=== PATIENT | male | born 1950 | race Caucasian/White ===

== ENCOUNTER 2021-04-21 03:16 | Observation (INO) | payer MEDICARE ==
[2021-04-21 04:04] LABS: HCT 34.2 % (39.0-53.0); HGB 10.9 gm/dL (13.0-17.5); Hypochromasia Moderate; MCHC 31.7 g/dL (31.0-37.0); MCV 85.1 fL (80.0-100.0); Mean Platelet Volume 8.7; Platelet Count 183 k/uL (150-450); RBC 4.02 m/uL (4.30-5.90); RDW 15.9 % (11.5-15.5); WBC 8.8 k/uL (3.8-10.6)
--- NOTE | 2021-04-21 04:04 | ED ---
SOB HPI - General Chief Complaint: Shortness of Breath Stated Complaint: EMILY Time Seen by Provider: 04/21/21 03:19 Source: patient, RN notes reviewed, old records reviewed Mode of arrival: ambulatory Limitations: no limitations - History of Present Illness Initial Comments: This is a 70-year-old male DF for evaluation patient Dese for multiple complaint s of mainly shortness of breath shortness of breath with difficulty catching his breath. Patient just by EMS for evaluation. Patient states breathing treatment by EMS did improve. Denies recent sick contacts or travel history no fevers. Emesis significant lower extremity swelling and edema MD Complaint: shortness of breath, pain with inspiration -: hour(s) (2) Severity: moderate Severity scale (1-10): 4 Quality: throbbing Consistency: constant Improves With: nothing Worsens With: nothing Known History Of: congestive heart failure Context: recent URI Associated Symptoms: chest pain, cough, syncope Treatments Prior to Arrival: none - Related Data Home Medications Medication Instructions Recorded Confirmed oxyCODONE HCL/ACETAMINOPHEN 1 tab PO BID 04/21/21 04/21/21 [Percocet 10-325 mg] Previous Rx's Medication Instructions Recorded Apixaban [Eliquis] 5 mg PO BID #60 tab 04/21/21 Allergies Allergy/AdvReac Type Severity Reaction Status Date / Time No Known Allergies Allergy Verified 04/21/21 06:38 Review of Systems ROS Statement: Those systems with pertinent positive or pertinent negative responses have been documented in the HPI. ROS Other: All systems not noted in ROS Statement are negative. Past Medical History Additional Past Medical History / Comment(s): shoulder injury History of Any Multi-Drug Resistant Organisms: None Reported Past Psychological History: No Psychological Hx Reported Smoking Status: Former smoker Past Alcohol Use History: None Reported Past Drug Use History: None Reported - Past Family History Father History Unknown: Yes General Exam Limitations: no limitations General appearance: alert, in no apparent distress, anxious, in distress Head exam: Present: atraumatic, normocephalic, normal inspection Eye exam: Present: normal appearance, PERRL, EOMI. Absent: scleral icterus, conjunctival injection, periorbital swelling ENT exam: Present: normal exam, mucous membranes moist Neck exam: Present: normal inspection. Absent: tenderness, meningismus, lymphadenopathy Respiratory exam: Present: respiratory distress, wheezes, accessory muscle use, decreased breath sounds, prolonged expiratory. Absent: rales, rhonchi, stridor Cardiovascular Exam: Present: regular rate, normal rhythm, normal heart sounds. Absent: systolic murmur, diastolic murmur, rubs, gallop, clicks GI/Abdominal exam: Present: soft, normal bowel sounds. Absent: distended, tenderness, guarding, rebound, rigid Extremities exam: Present: normal inspection, full ROM, normal capillary refill. Absent: tenderness, pedal edema, joint swelling, calf tenderness Back exam: Present: normal inspection Neurological exam: Present: alert, oriented X3, CN II-XII intact Psychiatric exam: Present: normal affect, normal mood Skin exam: Present: warm, dry, intact, normal color. Absent: rash Course Vital Signs 04/21/21 04/21/21 04/21/21 03:20 03:50 06:05 Temperature 98 F Pulse Rate 80 73 73 Respiratory 24 16 16 Rate Blood Pressure 185/83 177/88 169/89 O2 Sat by Pulse 96 96 95 Oximetry 04/21/21 04/21/21 04/21/21 07:47 07:55 08:48 Temperature 97.7 F Pulse Rate 74 76 75 Respiratory 20 Rate Blood Pressure 132/83 O2 Sat by Pulse 95 Oximetry 04/21/21 04/21/21 10:08 12:08 Temperature Pulse Rate 81 64 Respiratory 18 18 Rate Blood Pressure 156/89 144/82 O2 Sat by Pulse 95 93 L Oximetry - Reevaluation(s) Reevaluation #1: Medical record is reviewed Patient symptoms are improved here in the ER Patient is in no acute distress Patient informed results and questions answered Medical Decision Making - Medical Decision Making 70 male with new onset atrial fibrillation likely underlying COPD with wheezing, CHF. Patient be admitted for diuresis monitoring of A. fib and breathing treatments - Lab Data Result diagrams: 04/21/21 03:53 04/21/21 03:53 Lab Results 04/21/21 04/21/21 04/21/21 Range/Units 03:53 03:53 03:53 WBC 8.8 (3.8-10.6) k/uL RBC 4.02 L (4.30-5.90) m/uL Hgb 10.9 L (13.0-17.5) gm/dL Hct 34.2 L (39.0-53.0) % MCV 85.1 (80.0-100.0) fL MCH 27.0 (25.0-35.0) pg MCHC 31.7 (31.0-37.0) g/dL RDW 15.9 H (11.5-15.5) % Plt Count 183 (150-450) k/uL MPV 8.7 Neutrophils % (Manual) 86 % Band Neuts % (Manual) 1 % Lymphocytes % (Manual) 7 % Monocytes % (Manual) 3 % Eosinophils % (Manual) 3 % Neutrophils # (Manual) 7.60 (1.3-7.7) k/uL Lymphocytes # (Manual) 0.62 L (1.0-4.8) k/uL Monocytes # (Manual) 0.26 (0-1.0) k/uL Eosinophils # (Manual) 0.26 (0-0.7) k/uL Nucleated RBCs 0 (0-0) /100 WBC Manual Slide Review Performed Hypochromasia Moderate PT 10.7 (9.0-12.0) sec INR 1.0 (<1.2) APTT 23.1 (22.0-30.0) sec D-Dimer 0.79 H (<0.60) mg/L FEU Sodium 137 (137-145) mmol/L Potassium 4.4 (3.5-5.1) mmol/L Chloride 97 L (98-107) mmol/L Carbon Dioxide 33 H (22-30) mmol/L Anion Gap 7 mmol/L BUN 25 H (9-20) mg/dL Creatinine 1.00 (0.66-1.25) mg/dL Est GFR (CKD-EPI)AfAm 88 (>60 ml/min/1.73 sqM) Est GFR (CKD-EPI)NonAf 76 (>60 ml/min/1.73 sqM) Glucose 138 H (74-99) mg/dL Plasma Lactic Acid Fred (0.7-2.0) mmol/L Calcium 8.5 (8.4-10.2) mg/dL Magnesium 1.9 (1.6-2.3) mg/dL Total Bilirubin 0.3 (0.2-1.3) mg/dL AST 24 (17-59) U/L ALT 11 (4-49) U/L Alkaline Phosphatase 90 (38-126) U/L Troponin I (0.000-0.034) ng/mL NT-Pro-B Natriuret Pep pg/mL Total Protein 6.2 L (6.3-8.2) g/dL Albumin 3.4 L (3.5-5.0) g/dL 04/21/21 04/21/21 04/21/21 Range/Units 03:53 03:53 03:53 WBC (3.8-10.6) k/uL RBC (4.30-5.90) m/uL Hgb (13.0-17.5) gm/dL Hct (39.0-53.0) % MCV (80.0-100.0) fL MCH (25.0-35.0) pg MCHC (31.0-37.0) g/dL RDW (11.5-15.5) % Plt Count (150-450) k/uL MPV Neutrophils % (Manual) % Band Neuts % (Manual) % Lymphocytes % (Manual) % Monocytes % (Manual) % Eosinophils % (Manual) % Neutrophils # (Manual) (1.3-7.7) k/uL Lymphocytes # (Manual) (1.0-4.8) k/uL Monocytes # (Manual) (0-1.0) k/uL Eosinophils # (Manual) (0-0.7) k/uL Nucleated RBCs (0-0) /100 WBC Manual Slide Review Hypochromasia PT (9.0-12.0) sec INR (<1.2) APTT (22.0-30.0) sec D-Dimer (<0.60) mg/L FEU Sodium (137-145) mmol/L Potassium (3.5-5.1) mmol/L Chloride (98-107) mmol/L Carbon Dioxide (22-30) mmol/L Anion Gap mmol/L BUN (9-20) mg/dL Creatinine (0.66-1.25) mg/dL Est GFR (CKD-EPI)AfAm (>60 ml/min/1.73 sqM) Est GFR (CKD-EPI)NonAf (>60 ml/min/1.73 sqM) Glucose (74-99) mg/dL Plasma Lactic Acid Fred 0.8 (0.7-2.0) mmol/L Calcium (8.4-10.2) mg/dL Magnesium (1.6-2.3) mg/dL Total Bilirubin (0.2-1.3) mg/dL AST (17-59) U/L ALT (4-49) U/L Alkaline Phosphatase (38-126) U/L Troponin I 0.016 (0.000-0.034) ng/mL NT-Pro-B Natriuret Pep 3300 pg/mL Total Protein (6.3-8.2) g/dL Albumin (3.5-5.0) g/dL - EKG Data -: EKG Interpreted by Me (EKG shows A. fib 79 QRS 78 QTc 435) - Radiology Data Radiology results: report reviewed (Chest x-ray does show pulmonary edema CHF), image reviewed Disposition Clinical Impression: Acute pulmonary edema, Congestive heart failure, New onset atrial fibrillation, Acute exacerbation of chronic obstructive pulmonary disease Disposition: ADMITTED IP TO THIS HOSP Condition: Fair Is patient prescribed a controlled substance at d/c from ED?: No
[2021-04-21 04:22] LABS: Partial Thromboplastin Time 23.1 sec (22.0-30.0); Prothrombin Time 10.7 sec (9.0-12.0)
--- NOTE | 2021-04-21 04:24 | XR ---
EXAMINATION TYPE: XR chest 2V DATE OF EXAM: 04/21/2021 COMPARISON: NONE HISTORY: Short of breath TECHNIQUE: FINDINGS: Heart and mediastinum are normal. Lungs are clear of infiltrate. There is no heart failure. There are a few interstitial septal lines at the lung bases. There is no pleural effusion. IMPRESSION: There are a few Akin B lines that may indicate developing pulmonary interstitial edema.
[2021-04-21 04:37] LABS: Band Neutrophils % 1 %; Eosinophils # (M) 0.26 k/uL (0-0.7); Lymphocytes # (M) 0.62 k/uL (1.0-4.8); Monocytes # (M) 0.26 k/uL (0-1.0); Neutrophils % (M) 86 %; Nucleated Red Blood Cells 0 /100 WBC (0-0); Total Cells Counted 100
[2021-04-21 04:38] LABS: Albumin 3.4 g/dL (3.5-5.0); Calcium 8.5 mg/dL (8.4-10.2); Magnesium 1.9 mg/dL (1.6-2.3); Potassium 4.4 mmol/L (3.5-5.1); Total Bilirubin 0.3 mg/dL (0.2-1.3); Total Protein 6.2 g/dL (6.3-8.2)
[2021-04-21] MEDS ORDERED: IPRATROPIUM-ALBUTEROL 3 ML NEB INHALATION STA (06:35)
[2021-04-21] MEDS ORDERED: IPRATROPIUM-ALBUTEROL 3 ML NEB INHALATION PRN (06:35)
[2021-04-21] MEDS ORDERED: FUROSEMIDE 10 MG/ML 4 ML VIAL IV SCH (07:00)
[2021-04-21] MEDS ORDERED: ACETAMINOPHEN TAB 325 MG TAB PO PRN (08:17)
[2021-04-21] MEDS ORDERED: ONDANSETRON 4 MG/2 ML VIAL IVP PRN (08:17)
--- NOTE | 2021-04-21 08:25 | P.HPIM ---
History of Present Illness H&P Date: 04/21/21 Chief Complaint: Shortness of breath This is a 70-year-old male with no significant past medical history who presented to the emergency room with shortness of breath. Patient said that his symptoms started originally couple of month ago and is being getting progressively worse. He reports shortness of breath with dyspnea and also some chest discomfort when pushing heavy things around. Patient said that he did not make anything of it but for the last couple of days he noted worsening lower extremity swelling and his shortness of breath is being getting worse. He said last night he had trouble catching his breath and decided to come to the emergency room for further evaluation. In the ER, patient was hemodynamically stable. He appeared in irregular heart rhythm on the monitor. O2 sat around 95% on room air. Chest x-ray showed mild pulmonary edema. BNP was elevated as well and elevated d-dimer. Patient himself denies any cardiac history. No known COPD. Patient does not smoke cigarettes. He is usually fairly active. He never had blood clots in the past. Review of Systems Review of system: 14 points review of systems were obtained and were negative except to what were mentioned in the HPI. Past Medical History Additional Past Medical History / Comment(s): shoulder injury History of Any Multi-Drug Resistant Organisms: None Reported Past Psychological History: No Psychological Hx Reported Smoking Status: Former smoker Past Alcohol Use History: None Reported Past Drug Use History: None Reported Medications and Allergies Home Medications Medication Instructions Recorded Confirmed Type oxyCODONE HCL/ACETAMINOPHEN 1 tab PO BID 04/21/21 04/21/21 History [Percocet 10-325 mg] Allergies Allergy/AdvReac Type Severity Reaction Status Date / Time No Known Allergies Allergy Verified 04/21/21 06:38 Physical Exam Vitals: Vital Signs Temp Pulse Resp BP Pulse Ox 04/21/21 07:55 76 04/21/21 07:47 74 04/21/21 06:05 73 16 169/89 95 04/21/21 03:50 73 16 177/88 96 04/21/21 03:20 98 F 80 24 185/83 96 Intake and Output 04/20/21 04/21/21 04/21/21 22:59 06:59 14:59 Other: Weight 91.626 kg General: The patient is awake and alert, in no distress Eye: there is normal conjunctiva bilaterally. Neck: The neck is supple, there is no JVD. Cardiovascular: Irregularly irregular. Normal S1-S2, no S3-S4, no murmurs. Respiratory: Lungs scattered bibasilar crackles Gastrointestinal: Abdomen is soft, nontender Musculoskeletal: There is +1-2 pedal edema. Neurological:. Speech is normal. Skin: Skin is warm and dry Results CBC & Chem 7: 04/21/21 03:53 04/21/21 03:53 Labs: Abnormal Lab Results - Last 24 Hours (Table) 04/21/21 04/21/21 04/21/21 Range/Units 03:53 03:53 03:53 RBC 4.02 L (4.30-5.90) m/uL Hgb 10.9 L (13.0-17.5) gm/dL Hct 34.2 L (39.0-53.0) % RDW 15.9 H (11.5-15.5) % Lymphocytes # (Manual) 0.62 L (1.0-4.8) k/uL D-Dimer 0.79 H (<0.60) mg/L FEU Chloride 97 L (98-107) mmol/L Carbon Dioxide 33 H (22-30) mmol/L BUN 25 H (9-20) mg/dL Glucose 138 H (74-99) mg/dL Total Protein 6.2 L (6.3-8.2) g/dL Albumin 3.4 L (3.5-5.0) g/dL Assessment and Plan Assessment: This is a 70-year-old male with no significant past medical history who presented to the emergency room with progressive shortness of breath. Patient evaluated in the ER and will be admitted to the hospital for further evaluation of his medical problems noted below. 1. Suspected congestive heart failure exacerbation, with elevated BNP and evidence of fluid overload clinically on chest x-ray. Echocardiogram ordered for further evaluation. Continue IV Lasix 40 mg twice daily. 2. Elevated d-dimer, with progressive dyspnea. I would obtain CT angiogram of the chest to rule out PE 3. New onset atrial fibrillation, irregularly irregular rhythm noted on hall monitor and on exam. Rate controlled. Awaiting cardiology evaluation. I will check thyroid function test. 4. Anemia, exact etiology unclear. Needs further workup outpatient 5. DVT prophylaxis with subcu Lovenox 6. CODE STATUS: Patient would like to be full code
[2021-04-21] MEDS ORDERED: ENOXAPARIN 40 MG/0.4 ML SYRINGE SQ SCH (09:00)
[2021-04-21] MEDS ORDERED: HEPARIN SODIUM 1,000 UN/ML (10ML VL) IV PRN (09:07)
[2021-04-21] MEDS ORDERED: HEPARIN SODIUM 1,000 UN/ML (10ML VL) IV ONE (09:07)
--- NOTE | 2021-04-21 09:09 | CT ---
EXAMINATION TYPE: CT chest angio for PE DATE OF EXAM: 04/21/2021 COMPARISON: Radiograph same day HISTORY: 70-year-old male SOB, PE TECHNIQUE: Contiguous axial scanning of the chest performed with IV Contrast, patient injected with 1 00 mL of Isovue 370. Coronal and sagittal MIP reconstructions performed. CT DLP: 461.9 mGycm Automated exposure control for dose reduction was used. FINDINGS: Heart normal size without pericardial effusion. No flattening of the interventricular septum or reflu x of contrast into the hepatic veins. Scattered LAD and circumflex coronary artery calcifications are present. Ascending aorta mildly aneurysmal at 4.0 cm. Mild active cardiac or calcifications and bovine configu ration to the aortic arch. Upper descending thoracic aorta mildly aneurysmal at 3.6 cm. Mediastinal and hilar lymphadenopathy is present, measuring up to 1.0 cm right paratracheal, 1.4 cm A P window, 1.5 cm right hilum, 1.4 cm left hilum, and 2.3 cm subcarinal. Satisfactory opacification of the pulmonary arterial system with mildly enlarged caliber to the main right and left pulmonary arteries are 2.7 and 2.6 cm, respectively. No pulmonary embolus is seen. There are trace pleural effusions. Mild diffuse bronchial wall thickening. A few scattered areas of t ree-in-bud opacities, for example, periphery of the right midlung, axial image 67. Lower lung septal lines. Mild dependent groundglass. Some focal patchy opacity medial right base, axial image 123. Background minimal emphysematous change. A few benign calcified granulomas. Adjacent 7 mm noncalcified pulmonary nodule anterior right midlung , axial image 78. Visualized upper abdomen shows a central cystic dilatation of the right kidney measuring up to 4.3 cm . As could represent underlying hydronephrosis or a parapelvic cyst. Mild diffuse low-density thicken ing left adrenal gland without discrete nodularity. Bones: No osseous destructive process. IMPRESSION: 1. NO EVIDENCE FOR PULMONARY EMBOLUS. 2. HOWEVER, THERE ARE FINDINGS WHICH SUGGEST UNDERLYING PULMONARY ARTERIAL HYPERTENSION ALONG WITH TR ALKA EFFUSIONS AND BASILAR SEPTAL LINES. FINDINGS MAY REFLECT FLUID OVERLOAD STATE AND PULMONARY VASCU LAR CONGESTION. CORRELATE WITH BNP AND FLUID STATUS. 3. HOWEVER, THERE ARE ADDITIONAL FINDINGS INCLUDING A FEW PATCHES OF TREE-IN-BUD OPACITIES, MEDIASTIN AL AND HILAR LYMPHADENOPATHY (MEASURING UP TO 2.3 CM), AND FOCAL INFILTRATE MEDIAL RIGHT LOWER LOBE. A CONCURRENT INFECTIOUS ETIOLOGY/PNEUMONIA IS NOT EXCLUDED AT THIS TIME. FOLLOW-UP CT IN 6-8 WEEKS TO REASSESS THE LYMPHADENOPATHY. 4. A 7 MM RIGHT MIDLUNG PULMONARY NODULE SHOULD ALSO BE REASSESSED AT THE PATIENT'S FOLLOW-UP.
[2021-04-21] MEDS ORDERED: HEPARIN SOD,PORK IN 0.45% NACL 25,000 UNIT in 0.45% NACL 1 250ML.BAG IV SCH (09:15)
[2021-04-21] MEDS: METOPROLOL SUCCINATE (ER) 25 MG TAB.ER.24H PO SCH (09:59)
[2021-04-21] MEDS: oxyCODONE-APAP 10-325MG 1 EACH TAB PO SCH ×2 (10:00→21:51)
[2021-04-21] MEDS: LOSARTAN 25 MG TAB PO SCH (10:03)
[2021-04-21] MEDS: AZITHROMYCIN 500 MG TAB PO SCH (10:04)
[2021-04-21 10:09] VITALS: RESP 18
--- NOTE | 2021-04-21 12:09 | ECHOF ---
Referral Reason:Heart Failure MEASUREMENTS -------- HEIGHT: 180.3 cm WEIGHT: 91.6 kg BP: 169/89 IVSd: 1.3 cm (0.6 - 1.1) LVIDd: 4.2 cm (3.9 - 5.3) LVPWd: 1.2 cm (0.6 - 1.1) IVSs: 1.9 cm LVIDs: 2.2 cm LVPWs: 2.0 cm LAESV Index (A-L): 39.79 ml/m Ao Diam: 3.2 cm (2.0 - 3.7) AV Cusp: 1.4 cm (1.5 - 2.6) LA Diam: 2.6 cm (2.7 - 3.8) MV EXCURSION: 12.148 mm (> 18.000) MV EF SLOPE: 89 mm/s (70 - 150) EPSS: 2.4 cm MV E Reji: 1.26 m/s MV DecT: 242 ms MV A Reji: 0.59 m/s MV E/A Ratio: 2.13 AV maxP.87 mmHg AV meanP.92 mmHg AR PHT: 541 ms RAP: 15.00 mmHg RVSP: 44.78 mmHg FINDINGS -------- This was a technically good study. The left ventricular size is normal. There is mild concentric left ventricular hypertrophy. Overa ll left ventricular systolic function is normal with, an EF between 55 - 60 %. The diastolic fillin g pattern is normal for the age of the patient 13.47. The right ventricle is normal in size. LA is moderately dilated 34-39 ml/m2 The right atrial size is normal. Interatrial and interventricular septum intact. Aortic valve is trileaflet and is moderately thickened. There is mild aortic regurgitation. There is moderate aortic stenosis present. Peak/mean gradient across the Aortic Valve is 46.87mmHg / 25. 92mmHg. The mitral valve is normal. Mild mitral regurgitation is present. The tricuspid valve appears structurally normal. Mild tricuspid regurgitation present. There is m ild pulmonary hypertension. The right ventricular systolic pressure, as measured by Doppler, is 44. 78mmHg. There is no pulmonic regurgitation present. The aortic root size is normal. The inferior vena cava is mildly dilated. There is no pericardial effusion. CONCLUSIONS -------- 1. There is mild concentric left ventricular hypertrophy. 2. Overall left ventricular systolic function is normal with, an EF between 55 - 60 %. 3. The diastolic filling pattern is normal for the age of the patient 13.47 4. LA is moderately dilated 34-39 ml/m2 5. Aortic valve is trileaflet and is moderately thickened. 6. There is mild aortic regurgitation. 7. There is moderate aortic stenosis present. 8. Peak/mean gradient across the Aortic Valve is 46.87mmHg / 25.92mmHg. 9. Mild mitral regurgitation is present. 10. Mild tricuspid regurgitation present. 11. There is mild pulmonary hypertension. 12. The right ventricular systolic pressure, as measured by Doppler, is 44.78mmHg. 13. The inferior vena cava is mildly dilated. 14. There is no pericardial effusion. BOOKKEEPERS SUPERVISOR: Maryjane Zaragoza RDCS
[2021-04-21] MEDS: FUROSEMIDE 10 MG/ML 4 ML VIAL IV SCH (12:13)
--- NOTE | 2021-04-21 12:36 | CONS ---
CONSULTATION CARDIOLOGY CONSULTATION: CHIEF COMPLAINT: Shortness of breath. HISTORY OF PRESENT ILLNESS: Jakob is a 70-year-old gentleman who is admitted to hospital with sudden onset shortness of breath. He states that over the last several weeks he has been becoming more and more fatigued and tired with activity and was also becoming more short of breath. Last night he woke up from sleep because of difficulty in breathing. At the time of my evaluation in the emergency room, patient is comfortable at rest. Received IV Lasix with improvement in his symptoms. He does not have chest pain, leg edema, PND or orthopnea. There is no prior history of coronary artery disease or congestive heart failure. He has a fairly unremarkable history other than shoulder pain, for which she takes Percocet. His EKG shows atrial fibrillation with nonspecific ST-T wave changes, as do the rhythm strips. His troponin was mildly elevated. The patient underwent a CT scan of the chest that is negative for pulmonary embolism. LABS: Labs show that his BNP is elevated at 3300. Troponins are negative. Creatinine is normal at 1 and hemoglobin is low at 10.9. The patient's clinical presentation is consistent with acute onset congestive heart failure and persistent atrial fibrillation. I will obtain a 2D echo to document his LV function. Treat him with IV Lasix, IV heparin, beta blockers and ALKA inhibitors and optimize therapies as patient tolerates them. PAST MEDICAL HISTORY: Negative for hypertension, diabetes, dyslipidemia. MEDICATIONS: Include Percocet. ALLERGIES: No known drug allergies. FAMILY HISTORY: Negative for premature coronary artery disease. SOCIAL HISTORY: He denies smoking, ETOH abuse or drug abuse. REVIEW OF SYSTEMS: HEENT is unremarkable. CARDIAC: As described above. RESPIRATORY: As described above. GI: Negative. GENITOURINARY: Negative. SKIN: Negative. MUSCULOSKELETAL: Negative for arthritis. PSYCHOSOCIAL: Negative. ENDOCRINE/DERM: Negative. CONSTITUTIONAL: Negative. ONCOLOGICAL: Negative. LEAD INJECTION MOLD TECHNICIAN: Negative. Rest of the system review is not relevant. EXAM: Patient is afebrile. Heart rate is 74 beats per minute. Blood pressure is 132/83, respiratory rate is 18, O2 saturation is 95% on room air. NECK: There is no jugular venous distention. Carotid upstroke is normal. There is no bruit. CHEST: Exam reveals good air entry bilaterally. HEART: Exam reveals first and second heart sounds. No gallop. Regular rhythm. No murmur. ABDOMEN: Soft. EXTREMITIES: Exam of extremities did not reveal any edema. Peripheral pulses are felt. LABS: Labs show a hemoglobin of 10.9, platelet count is 183. Potassium is 4.4, creatinine is 1. Tropes are negative. BNP is elevated. ASSESSMENT: 1. Acute onset congestive heart failure. 2. Persistent atrial fibrillation with controlled ventricular rate, new onset. 3. Elevated D-dimer. Pulmonary embolism ruled out. PLAN: I will treat the patient with IV heparin and come to switch him to Eliquis or Xarelto depending upon what his insurance covers. Obtain a 2D echo, treat him with Lasix, beta hui, ALKA inhibitors. Depending upon his echo findings, adjust his therapies. Thank you for allowing me to participate in the care of this pleasant gentleman. [place] / XIOMYN: [id number] /
[2021-04-21] MEDS: APIXABAN 5 MG TAB PO SCH ×2 (12:37→21:50)
[2021-04-21 14:43] VITALS: BMI 28.1
[2021-04-22] MEDS: LOSARTAN 25 MG TAB PO SCH (08:04)
[2021-04-22] MEDS: AZITHROMYCIN 500 MG TAB PO SCH (08:04)
[2021-04-22] MEDS: oxyCODONE-APAP 10-325MG 1 EACH TAB PO SCH (08:04)
[2021-04-22] MEDS: APIXABAN 5 MG TAB PO SCH (08:04)
[2021-04-22] MEDS: METOPROLOL SUCCINATE (ER) 25 MG TAB.ER.24H PO SCH (08:04)
[2021-04-22 08:21] LABS: HCT 38.7 % (39.0-53.0); HGB 12.4 gm/dL (13.0-17.5); Hypochromasia Moderate; MCH 27.1 pg (25.0-35.0); MCV 84.6 fL (80.0-100.0); Mean Platelet Volume 8.4; Platelet Count 232 k/uL (150-450); RBC 4.58 m/uL (4.30-5.90); RDW 15.7 % (11.5-15.5); WBC 9.9 k/uL (3.8-10.6)
[2021-04-22 08:33] LABS: Prothrombin Time 10.5 sec (9.0-12.0)
[2021-04-22 09:04] LABS: Calcium 9.4 mg/dL (8.4-10.2); Potassium 4.4 mmol/L (3.5-5.1)
--- NOTE | 2021-04-22 10:22 | P.DS ---
Providers Date of admission: 04/21/21 06:35 Expected date of discharge: 04/22/21 Attending physician: Trevor Henriquez MD Consults: 04/21/21 06:31 Consult Physician Routine Consulting Provider: Mandeep Hammond Consult Reason/Comments: afibNew,CHF Do you want consulting provider notified?: Yes Primary care physician: [facility] Course: This is a 70-year-old male with no significant past medical history who presented to the emergency room with progressive shortness of breath. Patient evaluated in the ER and will be admitted to the hospital for further evaluation of his medical problems noted below. 1. New onset atrial fibrillation, rate controlled. Patient was seen and evaluated by cardiology. Started on anticoagulation with Eliquis. Echocardiogram showed preserved ejection fraction with no significant valvular abnormalities. Thyroid function test checked and normal 2. Elevated d-dimer, CT angiogram of the chest was negative for PE 3. Hilar lymphadenopathy with tree-in-bud opacities noted incidentally on computed tomography scan of the chest. Pro-calcitonin was normal. Patient was started on antibiotic with ceftriaxone and azithromycin and will finish course at home with Keflex and azithromycin. He was counseled extensively to follow-up with his PCP for repeat imaging in the next 6-8 weeks. 4. Anemia, exact etiology unclear. Needs further workup outpatient 5. 7 mm right mid lung pulmonary nodule: Follow-up imaging recommended Patient was seen, examined, and evaluated by me on the day of discharge. His overall condition improved significantly. His lungs are clear to auscultation bilaterally. He is eager to be discharged home. All of his prescription sent to the pharmacy. He will follow-up with cardiology and PCP in the office as directed. Patient Condition at Discharge: Fair Plan - Discharge Summary Discharge Rx Participant: Yes New Discharge Prescriptions: New Cephalexin [Keflex] 500 mg PO Q6HR 3 Days #12 cap Furosemide [Lasix] 40 mg PO DAILY #30 tablet Metoprolol Succinate (ER) [Toprol XL] 25 mg PO DAILY #30 tab.er.24h Apixaban [Eliquis] 5 mg PO BID #60 tab Losartan [Cozaar] 25 mg PO DAILY #30 tab Azithromycin [Zithromax] 250 mg PO DAILY 3 Days #3 tab Continue oxyCODONE HCL/ACETAMINOPHEN [Percocet 10-325 mg] 1 tab PO BID Discharge Medication List Apixaban [Eliquis] 5 mg PO BID #60 tab 04/21/21 [Rx] oxyCODONE HCL/ACETAMINOPHEN [Percocet 10-325 mg] 1 tab PO BID 04/21/21 [History] Azithromycin [Zithromax] 250 mg PO DAILY 3 Days #3 tab 04/22/21 [Rx] Cephalexin [Keflex] 500 mg PO Q6HR 3 Days #12 cap 04/22/21 [Rx] Furosemide [Lasix] 40 mg PO DAILY #30 tablet 04/22/21 [Rx] Losartan [Cozaar] 25 mg PO DAILY #30 tab 04/22/21 [Rx] Metoprolol Succinate (ER) [Toprol XL] 25 mg PO DAILY #30 tab.er.24h 04/22/21 [Rx] Follow up Appointment(s)/Referral(s): Jah Hammond DO [Primary Care Provider] - 1-2 days Michael Mckeon MD [STAFF PHYSICIAN] - 1 Week Activity/Diet/Wound Care/Special Instructions: Copay for Eliquis is $43.50 with free coupon applied in [facility] pharmacy. Discharge Disposition: HOME SELF-CARE
[2021-04-22 12:13] VITALS: BP 159/94; PULSE 72; TEMP 98.3
[2021-04-22] MEDS: FUROSEMIDE 10 MG/ML 4 ML VIAL IV SCH (12:13)
[2021-04-22 12:44] LABS: Lymphocytes # (M) 0.59 k/uL (1.0-4.8); Neutrophils # (M) 8.81 k/uL (1.3-7.7); Neutrophils % (M) 89 %; Nucleated Red Blood Cells 0 /100 WBC (0-0); Total Cells Counted 100
--- NOTE | 2021-04-22 12:46 | P.PN ---
Subjective Progress Note Date: 04/22/21 HISTORY OF PRESENT ILLNESS: Patient examined this morning at the bedside. Patient states his shortness of breath has resolved. He denies chest pain or pressure. Patient is currently in sinus mechanism. Echocardiogram completed revealed ejection fraction 55-60%, moderate aortic stenosis, mild mitral regurgitation, mild tricuspid regurgitation, and mild pulmonary hypertension. Patient has been cleared for discharge per internal medicine. PHYSICAL EXAM: VITAL SIGNS: Reviewed. GENERAL: Well-developed in no acute distress. NECK: Supple. No JVD or thyromegaly LUNGS: Respirations even and unlabored. Lungs essentially clear to auscultation bilaterally. HEART: Regular rate and rhythm. S1 and S2 heard. Systolic murmur noted EXTREMITIES: Normal range of motion. No clubbing or cyanosis. Peripheral pulses intact. No lower extremity edema ASSESSMENT: Acute diastolic heart failure, ejection fraction 55-60% New-onset paroxysmal atrial fibrillation, currently maintaining sinus mechanism Moderate aortic stenosis Hypertension PLAN: Patient has been cleared for discharge per internal medicine Agreeable to discharge home today on Lasix 40 mg daily, metoprolol succinate 25 mg daily, losartan 50 mg daily, Eliquis 5 mg twice a day, and potassium chloride 20meq daily Patient to follow-up outpatient with Dr. Mckeon Nurse practitioner note has been reviewed by physician. Signing provider agrees with the documented findings, assessment, and plan of care. Objective - Vital Signs Vital signs: Vital Signs Temp 98.3 F 04/22/21 12:00 Pulse 72 04/22/21 12:00 Resp 18 04/22/21 12:00 BP 159/94 04/22/21 12:00 Pulse Ox 93 L 04/22/21 12:00 Intake & Output 04/21/21 04/22/21 04/22/21 18:59 06:59 18:59 Intake Total 240 180 Output Total 1200 Balance -960 180 Weight 91.626 kg 85.1 kg Intake: Oral 240 180 Output: Urine 1200 Other: # Voids 1 # Bowel Movements 0 - Labs CBC & Chem 7: 04/22/21 07:18 04/22/21 07:18 Labs: Abnormal Lab Results - Last 24 Hours (Table) 04/22/21 04/22/21 Range/Units 07:18 07:18 Hgb 12.4 L (13.0-17.5) gm/dL Hct 38.7 L (39.0-53.0) % RDW 15.7 H (11.5-15.5) % Chloride 94 L (98-107) mmol/L Carbon Dioxide 39 H (22-30) mmol/L BUN 21 H (9-20) mg/dL Glucose 132 H (74-99) mg/dL Microbiology - Last 24 Hours (Table) 04/21/21 10:00 Blood Culture - Preliminary Blood No Growth after 24 hours
== END 2021-04-22 13:05 | disposition home or self-care (01) ==
LOC: EC 03:16 → SUPCPDRO 03:16 → 3SCARD 06:35 → INTOOBSV 06:35 → 3SCARD 12:48 → UNDODISIN 04-22 13:05
PROVIDERS: ADMIT Internal Medicine; ATTEND Internal Medicine
DX: I48.19 Other persistent atrial fibrillation (principal); I11.0 Hypertensive heart disease with heart failure; I50.31 Acute diastolic (congestive) heart failure; I35.0 Nonrheumatic aortic (valve) stenosis; I27.20 Pulmonary hypertension, unspecified; D64.9 Anemia, unspecified; R91.1 Solitary pulmonary nodule; R79.89 Other specified abnormal findings of blood chemistry; R59.0 Localized enlarged lymph nodes; Z79.01 Long term (current) use of anticoagulants; Z87.891 Personal history of nicotine dependence; Z87.828 Personal history of other (healed) physical injury and trauma
CPT/HCPCS: 96376; 96368; 96365; 96366; 96375; 99285; 36415; 94640 ×2; 93005; 93306; 85379; 83880; 80053; 80048; 84443; 83605; 83735 ×2; 84484; 85025 ×2; 85610 ×2; 85730; 87040; 84145; 71046; 71275; G0378 ×2; J1940; J0696 ×2; J1644 ×2; Q9967; 96374

== ENCOUNTER 2021-06-16 06:03 | Day surgery (SDC) | payer MEDICARE ==
[2021-06-10 11:30] VITALS: BMI 26.2
[~2021-06-16 06:03] MED LIST: SODIUM CHLORIDE 0.9% 1,000 ML IV SCH
[2021-06-16] MEDS ORDERED: SODIUM CHLORIDE 0.9% 500 ML 500 ML IV ONE (06:05)
[2021-06-16 06:43] VITALS: TEMP 98.1
[2021-06-16] MEDS ORDERED: PROPOFOL 10 MG/ML 20 ML VIAL IV ONE (07:26)
[2021-06-16] MEDS ORDERED: LIDOCAINE 1% INJ 10MG/ML (20 ML MDV) ONE (07:26)
[2021-06-16 07:49] LABS: Calcium 9.5 mg/dL (8.4-10.2); Potassium 4.5 mmol/L (3.5-5.1)
[2021-06-16 08:03] VITALS: RESP 16
--- NOTE | 2021-06-16 08:29 | ECHOT ---
TRANSESOPHAGEAL ECHOCARDIOGRAM REFERRING PHYSICIAN: Dr. Zacarias. INDICATION: Persistent atrial fibrillation. The patient has diastolic heart failure and aortic stenosis. PROCEDURE NOTE: After obtaining informed consent, transesophageal echocardiogram was performed in the left lateral position using an Omni plane probe. Local and IV sedation were obtained by the certified travel counselor. The patient tolerated the procedure well without any obvious immediate complications. 2D M-mode color Doppler and spectral analysis was performed. FINDINGS: 1. There is no intracardiac thrombus within the left atrial appendage, left atrium, right atrium, right ventricular or left ventricle. 2. Left ventricle has normal size and systolic function. 3. Mitral valve shows mild mitral regurgitation. 4. Tricuspid valve shows mild tricuspid regurgitation. 5. Aortic valve is a 3-leaflet valve appears heavily calcified with moderate to severe restriction in leaflet mobility with moderate eccentric jet of aortic regurgitation. There is aortic stenosis with a calculated valve area of 0.8 squared cm. 6. Interatrial septum: There is no evidence of [id number]-fh-[id number] shunt by color-flow Doppler or agitated saline contrast study or firt-wq-emwge shunt by color-flow Doppler. CONCLUSIONS: 1. No intracardiac thrombus. 2. Left ventricular systolic function is normal. 3. Moderate to severe aortic stenosis. 4. Moderate aortic regurgitation. PLAN: Patient will proceed with cardioversion. MMODL / IJN: [id number] /
--- NOTE | 2021-06-16 08:33 | PCN ---
PROCEDURE NOTE PROCEDURE PERFORMED: Cardioversion. INDICATION: Persistent atrial fibrillation. PROCEDURE NOTE: After obtaining informed consent, patient underwent electrical cardioversion with synchronized DC current. He converted to sinus rhythm following a 2nd shock at 150 joules, was adequately anticoagulated with Eliquis and intracardiac thrombus was ruled out by CHRIS. [place] / XIOMYN: [id number] /
[2021-06-16 17:08] VITALS: BP 156/74; PULSE 63
== END 2021-06-16 10:05 | disposition home or self-care (01) ==
LOC: CATHCVL 06:03
PROVIDERS: ATTEND Internal Medicine Cardiovascular Disease
DX: I48.19 Other persistent atrial fibrillation (principal); Z79.01 Long term (current) use of anticoagulants; Z79.899 Other long term (current) drug therapy; I11.0 Hypertensive heart disease with heart failure; I50.32 Chronic diastolic (congestive) heart failure; I35.0 Nonrheumatic aortic (valve) stenosis
CPT/HCPCS: 93312; 93005; 92960; 80048; J2001; J2704

== ENCOUNTER 2021-09-05 12:31 | Emergency (ER) | payer MEDICARE ==
[2021-09-05 13:16] VITALS: RESP 18
[2021-09-05] MEDS ORDERED: ALBUTEROL HFA INHALER INHALATION STA (13:51)
[2021-09-05] MEDS ORDERED: ACETAMINOPHEN TAB 500 MG TAB PO STA (13:54)
[2021-09-05] MEDS ORDERED: SODIUM CHLORIDE 0.9% 1,000 ML IV ONE (13:54)
[2021-09-05] MEDS ORDERED: IBUPROFEN 600 MG TAB PO STA (13:54)
--- NOTE | 2021-09-05 14:01 | ED ---
General Adult HPI - General Chief complaint: Shortness of Breath Stated complaint: EMILY/Chest Tightness Time Seen by Provider: 09/05/21 13:15 Source: patient, RN notes reviewed, old records reviewed Mode of arrival: ambulatory Limitations: no limitations - History of Present Illness Initial comments: This is a 70-year-old male presents to the emergency department and states she did not get his covert vaccine. Patient states 8 days ago he got up out of bed became lightheaded and fell and hit his left side of his chest on a dresser. Patient states ever since then he's been very tired and fatigued he states he's also a dry cough and just overall does not feel good. Patient states he's got generalized weakness but no focal weakness. Patient denies any chest pain or palpitations per patient denies shortness of breath. Patient states when he nohemi es a deep breath the left side of his chest does hurt ever since he hit the dresser. Patient denies smoking. Patient states he does have a history of A. fib. Patient denies any diarrhea or vomiting. Patient denies any leg swelling or calf tenderness. - Related Data Home Medications Medication Instructions Recorded Confirmed oxyCODONE HCL/ACETAMINOPHEN 1 tab PO BID 04/21/21 06/16/21 [Percocet 10-325 mg] Previous Rx's Medication Instructions Recorded Apixaban [Eliquis] 5 mg PO BID #60 tab 04/21/21 Furosemide [Lasix] 40 mg PO DAILY #30 tablet 04/22/21 Losartan [Cozaar] 50 mg PO DAILY #90 tab 04/22/21 Metoprolol Succinate (ER) [Toprol 25 mg PO DAILY #30 tab.er.24h 04/22/21 XL] Potassium Chloride ER [K-Dur 20] 20 meq PO DAILY #90 tab 04/22/21 Allergies Allergy/AdvReac Type Severity Reaction Status Date / Time No Known Allergies Allergy Verified 09/05/21 13:16 Review of Systems ROS Statement: Those systems with pertinent positive or pertinent negative responses have been documented in the HPI. ROS Other: All systems not noted in ROS Statement are negative. Past Medical History Past Medical History: Atrial Fibrillation, Heart Failure Additional Past Medical History / Comment(s): hx rt shoulder injury. hx kidney stone History of Any Multi-Drug Resistant Organisms: None Reported Past Surgical History: No Surgical Hx Reported, Cardiac Ablation Additional Past Surgical History / Comment(s): lithotripsy Past Anesthesia/Blood Transfusion Reactions: No Reported Reaction Past Psychological History: No Psychological Hx Reported Smoking Status: Former smoker Past Alcohol Use History: None Reported Past Drug Use History: None Reported - Past Family History Father History Unknown: Yes General Exam - General Exam Comments Initial Comments: GENERAL: Patient is well-developed and well-nourished. Patient is nontoxic and well- hydrated and is in mild distress. ENT: Neck is soft and supple. No significant lymphadenopathy is noted. Oropharynx is clear. Moist mucous membranes. Neck has full range of motion without eliciting any pain. EYES: The sclera were anicteric and conjunctiva were pink and moist. Extraocular movements were intact and pupils were equal round and reactive to light. Eyelids were unremarkable. PULMONARY: Unlabored respirations. Good breath sounds bilaterally. Patient has crackles in the bases more so on the left than the right. CARDIOVASCULAR: There is a regular rate and rhythm without any murmurs gallops or rubs. ABDOMEN: Soft and nontender with normal bowel sounds. SKIN: Skin is clear with no lesions or rashes and otherwise unremarkable. NEUROLOGIC: Patient is alert and oriented x3. Cranial nerves II through XII are grossly intact. Motor and sensory are also intact. Normal speech, volume and content. Symmetrical smile. MUSCULOSKELETAL: Normal extremities with adequate strength and full range of motion. LYMPHATICS: No significant lymphadenopathy is noted PSYCHIATRIC: Normal psychiatric evaluation. Limitations: no limitations Course Vital Signs 09/05/21 09/05/21 09/05/21 13:13 14:03 15:29 Temperature 98.8 F 101.2 F H 99.8 F H Pulse Rate 76 78 Respiratory 18 18 Rate Blood Pressure 92/65 94/63 O2 Sat by Pulse 97 96 Oximetry Medical Decision Making - Medical Decision Making EKG shows atrial fibrillation at 89 bpm QRS is 78 QT interval 338 QTC is 411. Patient's EKG shows no ST segment elevation or depression. Chest x-ray shows no acute normalities. New. Patient received monoclonal antibodies for the COVID diagnosis. - Lab Data Result diagrams: 09/05/21 14:09 09/05/21 14:09 Lab Results 09/05/21 09/05/21 09/05/21 Range/Units 14:06 14:09 14:09 WBC 4.6 (3.8-10.6) k/uL RBC 4.47 (4.30-5.90) m/uL Hgb 13.2 (13.0-17.5) gm/dL Hct 39.2 (39.0-53.0) % MCV 87.6 (80.0-100.0) fL MCH 29.6 (25.0-35.0) pg MCHC 33.8 (31.0-37.0) g/dL RDW 15.6 H (11.5-15.5) % Plt Count 110 L (150-450) k/uL MPV 9.7 Neutrophils % (Manual) 82 % Lymphocytes % (Manual) 17 % Monocytes % (Manual) 1 % Neutrophils # (Manual) 3.77 (1.3-7.7) k/uL Lymphocytes # (Manual) 0.78 L (1.0-4.8) k/uL Monocytes # (Manual) 0.05 (0-1.0) k/uL Nucleated RBCs 0 (0-0) /100 WBC Manual Slide Review Performed RBC Morphology Normal Sodium 132 L (137-145) mmol/L Potassium 4.0 (3.5-5.1) mmol/L Chloride 96 L (98-107) mmol/L Carbon Dioxide 28 (22-30) mmol/L Anion Gap 8 mmol/L BUN 37 H (9-20) mg/dL Creatinine 1.29 H (0.66-1.25) mg/dL Est GFR (CKD-EPI)AfAm 65 (>60 ml/min/1.73 sqM) Est GFR (CKD-EPI)NonAf 56 (>60 ml/min/1.73 sqM) Glucose 94 (74-99) mg/dL Calcium 8.2 L (8.4-10.2) mg/dL Total Bilirubin 0.5 (0.2-1.3) mg/dL AST 41 (17-59) U/L ALT 18 (4-49) U/L Alkaline Phosphatase 60 (38-126) U/L Total Protein 6.4 (6.3-8.2) g/dL Albumin 3.4 L (3.5-5.0) g/dL Coronavirus (PCR) Detected A (Not Detectd) Disposition Clinical Impression: COVID Disposition: HOME SELF-CARE Condition: Good Instructions (If sedation given, give patient instructions): Coronavirus Disease 2019 (COVID-19) Is patient prescribed a controlled substance at d/c from ED?: No Referrals: Jah Hammond DO [Primary Care Provider] - 1-2 days Time of Disposition: 16:34
[2021-09-05 14:19] LABS: HCT 39.2 % (39.0-53.0); HGB 13.2 gm/dL (13.0-17.5); MCH 29.6 pg (25.0-35.0); MCHC 33.8 g/dL (31.0-37.0); MCV 87.6 fL (80.0-100.0); Mean Platelet Volume 9.7; Platelet Count 110 k/uL (150-450); RBC 4.47 m/uL (4.30-5.90); RDW 15.6 % (11.5-15.5); WBC 4.6 k/uL (3.8-10.6)
--- NOTE | 2021-09-05 14:22 | XR ---
EXAMINATION TYPE: XR chest 1V portable DATE OF EXAM: 09/05/2021 Comparison: 04/21/2021 Clinical History: 70 year-old male Short of breath Findings: Heart normal size. Hyperinflation. Chronic nodularity right perihilar region is likely prominent vess els on end. Strandy atelectasis in the lower lungs. Interstitial prominence is unchanged. No pleural effusion. Impression: COPD with chronic changes. No acute process seen.
[2021-09-05 14:36] LABS: Albumin 3.4 g/dL (3.5-5.0); Calcium 8.2 mg/dL (8.4-10.2); Total Bilirubin 0.5 mg/dL (0.2-1.3); Total Protein 6.4 g/dL (6.3-8.2)
[2021-09-05 15:28] LABS: Lymphocytes # (M) 0.78 k/uL (1.0-4.8); Monocytes # (M) 0.05 k/uL (0-1.0); Neutrophils # (M) 3.77 k/uL (1.3-7.7); Neutrophils % (M) 82 %; Nucleated Red Blood Cells 0 /100 WBC (0-0); Total Cells Counted 100
[2021-09-05] MEDS ORDERED: SODIUM CHLORIDE 0.9% 50 ML IVPB ONE (16:45)
[2021-09-05] MEDS ORDERED: BAMLANIVIMAB (EUA) 700 MG, ETESEVIMAB (EUA) 1,400 MG in SODIUM CHLORIDE 0.9% 50 ML IVPB ONE (17:00)
[2021-09-05] MEDS ORDERED: SODIUM CHLORIDE 0.9% 500 ML 500 ML IV ONE (19:03)
[2021-09-05 19:20] VITALS: TEMP 98
[2021-09-05 19:48] VITALS: BP 102/64; PULSE 66
== END 2021-09-05 20:01 | disposition home or self-care (01) ==
LOC: EC 12:31
DX: U07.1 COVID-19 (principal); I50.9 Heart failure, unspecified; Z87.891 Personal history of nicotine dependence
CPT/HCPCS: 99285; 96365; 36415; 94640; 93005; 80053; 85025; 87635; 71045; J3490

== ENCOUNTER → 2022-04-11 | Day surgery (SDC) | payer MEDICARE ==
[2022-04-10 09:25] VITALS: BMI 23.7
[~2022-04-11] MED LIST changes: +ALPRAZolam 0.25 MG TAB PO PRN; +ALPRAZolam 0.5 MG TAB PO PRN; +ASPIRIN 325 MG TAB PO STA; +ATORVASTATIN 80 MG TAB PO STA; +HEPARIN SODIUM 1,000 UN/ML (10ML VL) ONE; +HEPARIN SODIUM,PORCINE 10,000 UNIT in SODIUM CHLORIDE 0.9% 1,000 ML IRRIGATION PRN; +HEPARIN SODIUM,PORCINE 2,500 UNIT in SODIUM CHLORIDE 0.9% 250 ML IRRIGATION PRN; +NITROGLYCERIN SL TABS 0.4 MG TAB SUBLINGUAL PRN; +SODIUM CHLORIDE 0.9% 1,000 ML IV ONE; -SODIUM CHLORIDE 0.9% 1,000 ML IV SCH; +SODIUM CHLORIDE 0.9% 1,000 ML in EMPTY BAG 1 BAG IV SCH; +VERAPAMIL 2.5 MG/ML 2 ML AMP ONE; +fentaNYL (PF) 50 MCG/ML 2 ML AMP ONE
[2022-04-11 07:24] VITALS: BP 117/57; PULSE 62; RESP 18; TEMP 97
[2022-04-11 07:27] LABS: HCT 32.4 % (39.0-53.0); Hypochromasia Marked; MCH 27.6 pg (25.0-35.0); MCHC 30.7 g/dL (31.0-37.0); MCV 89.9 fL (80.0-100.0); Mean Platelet Volume 9.3; Platelet Count 263 k/uL (150-450); RBC 3.61 m/uL (4.30-5.90); RDW 14.6 % (11.5-15.5); WBC 8.9 k/uL (3.8-10.6)
[2022-04-11 07:38] LABS: Calcium 8.9 mg/dL (8.4-10.2); Potassium 4.6 mmol/L (3.5-5.1)
[2022-04-11 08:35] LABS: Basophils # (M) 0.09 k/uL (0-0.2); Eosinophils # (M) 0.36 k/uL (0-0.7); Lymphocytes # (M) 2.23 k/uL (1.0-4.8); Monocytes # (M) 0.89 k/uL (0-1.0); Neutrophils # (M) 5.34 k/uL (1.3-7.7); Neutrophils % (M) 60 %; Nucleated Red Blood Cells 0 /100 WBC (0-0); Total Cells Counted 100
--- NOTE | 2022-04-11 09:38 | CONS ---
ELIZABETH Robert is a 71-year-old gentleman with history of atrial fibrillation and aortic stenosis and regurgitation who presented to me recently with symptoms of exertional shortness of breath and I advised him to undergo cardiac catheterization with a view to replacing his aortic valve. I met the patient in the labor relations analyst this morning and his lab work done today show that he is anemic with a hemoglobin around 10 with previous hemoglobin being around 13 and his renal functions are impaired with a creatinine of 1.9. Given the risk of contrast induced nephropathy in a patient whose kidney functions have not been evaluated in the past and anemia that can very well explain his symptoms, I decided to cancel the procedure this morning, have him go see a infrastructure analyst, have evaluation for that first and have him get an evaluation for the anemia before I bring him back and perform the heart catheterization. I explained these issues to the patient. He understands and is in agreement with the plans. [place] / VANITA: [id number] /
== END ==
LOC: CATHCVL 06:49
PROVIDERS: ATTEND Internal Medicine Cardiovascular Disease
DX: I48.19 Other persistent atrial fibrillation (principal); Z53.8 Procedure and treatment not carried out for other reasons; D64.9 Anemia, unspecified; N28.9 Disorder of kidney and ureter, unspecified; I35.0 Nonrheumatic aortic (valve) stenosis; I35.1 Nonrheumatic aortic (valve) insufficiency; I11.0 Hypertensive heart disease with heart failure; I50.30 Unspecified diastolic (congestive) heart failure; Z79.899 Other long term (current) drug therapy; Z79.01 Long term (current) use of anticoagulants
CPT/HCPCS: 80048; 85025

== ENCOUNTER → 2022-06-09 | Outpatient (CLI) | payer MEDICARE ==
--- NOTE | 2022-06-09 12:24 | CT ---
EXAMINATION TYPE: CT abdomen pelvis wo con CT DLP: 382.6 mGycm, Automated exposure control for dose reduction was used. DATE OF EXAM: 06/09/2022 12:15 PM COMPARISON: CT abdomen pelvis most recent from CLINICAL INDICATION:Male, 71 years old with history of R31.0 Gross hematuria; Gross hematuria. TECHNIQUE: Axial CT of the abdomen and pelvis. Sagittal and coronal reformats were created on a [employer] workstation. Contrast used: None Oral contrast used: without Oral Contrast FINDINGS: LOWER CHEST: Unremarkable ABDOMEN LIVER: Unremarkable GALLBLADDER AND BILE DUCTS: Unremarkable. PANCREAS: Unremarkable. SPLEEN: Unremarkable. ADRENAL GLANDS: Adenomatous hypertrophy changes of the left adrenal gland. The right adrenal glands u nremarkable. Findings are stable from 2020 KIDNEYS AND URETERS: Mild right hydronephrosis with large calculus at the ureteropelvic junction consuelo uring 3.0 cm. Additional subcentimeter nonobstructing calculi on the right are present. On the left t here is nonobstructing calculus measuring up to 4 mm. Left inferior pole indeterminate renal cyst jossie suring 60 Hounsfield units and 10 mm PELVIS BLADDER: Unremarkable REPRODUCTIVE: Unremarkable. ABDOMEN & PELVIS STOMACH AND BOWEL: No evidence of bowel obstruction. PERITONEUM: No evidence of pneumoperitoneum or free fluid. VASCULATURE: Mild atherosclerotic calcifications are present throughout the abdominal aorta and its b ranches. No evidence of aortic aneurysm. MUSCULOSKELETAL: No acute osseous abnormalities, moderate multilevel disc degeneration changes throug hout the spine. LYMPH NODES: No gross evidence for lymphadenopathy. SOFT TISSUE/ABDOMINAL WALL: Unremarkable IMPRESSION: 1. Multiple renal calculi bilaterally the largest in the right renal pelvis measuring up to 3.0 cm m ild right hydronephrosis.. Additional nonobstructing calculi bilaterally. 2. Indeterminate left inferior renal pole hyperdense lesion. This could represent hyperdense cyst ve rsus other. Consider short-term follow-up and/or multiphasic CT/MRI with contrast renal mass protocol .
== END | disposition home or self-care (01) ==
LOC: RADCTMAIN 11:46
PROVIDERS: ATTEND Urology
DX: R31.0 Gross hematuria (principal)
CPT/HCPCS: 74176

== ENCOUNTER → 2022-06-21 | Outpatient (CLI) | payer MEDICARE ==
[2022-06-21 17:54] LABS: HCT 35.2 % (39.6-50.0); HGB 10.2 g/dL (13.0-17.0); MCH 23.8 pg (27.0-32.0); MCV 82.1 fL (80.0-97.0); Mean Platelet Volume 11.5 fL (9.5-12.2); NRBC Per 100 WBC 0 /100 WBCS (0.0-0.0); Platelet Count 195 X 10*3/uL (140-440); RBC 4.29 X 10*6/uL (4.40-5.60); RDW 17.1 % (11.5-14.5); WBC 8.41 X 10*3/uL (4.50-10.00)
[2022-06-21 18:40] LABS: Anion Gap 10.2 mmol/L (10.00-18.00); BUN/Creat Ratio 20.65 Ratio (12.00-20.00); Blood Urea Nitrogen 25.4 mg/dL (9.0-27.0); Calcium 9.3 mg/dL (8.7-10.3); Carbon Dioxide 30.8 mmol/L (20.0-27.5); Non-African American GFR(CKD) 58.7 (60.0-200.0); Potassium 5.1 mmol/L (3.5-5.5)
[2022-06-21 21:18] LABS: Appearance,Urine Clear (Clear); Bilirubin,Urine Negative (Negative); Blood,Urine Large (Negative); Color,Urine Yellow (Yellow); Ketones,Urine Negative (Negative); Nitrite,Urine Negative (Negative); Specific Gravity,Urine 1.009 (1.001-1.030); Urobilinogen,Urine 0.2 (0.2,1.0)
[2022-06-21 21:25] LABS: Bacteria,Urine None Seen /HPF (None Seen)
== END | disposition home or self-care (01) ==
LOC: LABPAT 12:17
PROVIDERS: ATTEND Urology
DX: Z01.812 Encounter for preprocedural laboratory examination (principal); Z01.818 Encounter for other preprocedural examination; N20.0 Calculus of kidney
CPT/HCPCS: 80048; 81001; 85027; 87086

== ENCOUNTER 2022-06-26 07:46 | Day surgery (SDC) | payer MEDICARE ==
[2022-06-23 08:33] VITALS: BMI 24.7
[~2022-06-26 07:46] MED LIST changes: -ALPRAZolam 0.25 MG TAB PO PRN; -ALPRAZolam 0.5 MG TAB PO PRN; -ASPIRIN 325 MG TAB PO STA; -ATORVASTATIN 80 MG TAB PO STA; +DEXAMETHASONE SOD PHOSPHATE 4 MG/ML 1 ML VIAL IV ONE; -HEPARIN SODIUM 1,000 UN/ML (10ML VL) ONE; -HEPARIN SODIUM,PORCINE 10,000 UNIT in SODIUM CHLORIDE 0.9% 1,000 ML IRRIGATION PRN; -HEPARIN SODIUM,PORCINE 2,500 UNIT in SODIUM CHLORIDE 0.9% 250 ML IRRIGATION PRN; +LACTATED RINGERS 1,000 ML IV SCH; -NITROGLYCERIN SL TABS 0.4 MG TAB SUBLINGUAL PRN; +ONDANSETRON 4 MG/2 ML VIAL IVP ONE; -SODIUM CHLORIDE 0.9% 1,000 ML IV ONE; -SODIUM CHLORIDE 0.9% 1,000 ML in EMPTY BAG 1 BAG IV SCH; -VERAPAMIL 2.5 MG/ML 2 ML AMP ONE; -fentaNYL (PF) 50 MCG/ML 2 ML AMP ONE
--- NOTE | 2022-06-26 08:27 | XR ---
EXAMINATION TYPE: XR KUB DATE OF EXAM: 06/26/2022 HISTORY: Kidney stones Comparison: CT abdomen pelvis 06/09/2022. Technique: Single supine KUB is submitted for interpretation. Findings: 3.3 cm ovoid calculus redemonstrated in the right renal pelvis. Additional at least 5 calculi measuri ng up to 6 mm in the inferior pole of the right kidney. No definitive calculi within the left kidney or both ureters. Bowel gas pattern is unremarkable. No free air. No mass effects. Vascular sclerosi s. Multilevel degenerative changes of the visualized spine. IMPRESSION: Right renal calculi as described above.
[2022-06-26] MEDS ORDERED: LIDOCAINE 1% (10MG/ML) FOR IV START INTRADERMA ONE (09:05)
--- NOTE | 2022-06-26 09:34 | P.HPIHPCON ---
History of Present Illness H&P Date: 06/23/22 This is a 71-year-old male with history of a 3 cm right-sided renal pelvis stone. He is symptomatic from the stone, stone is also obstructive causing hydronephrosis. Discussed given the size of the stone the option of right-sided percutaneous nephrolithotomy. Risk and benefit of the procedure was discussed in detail. Discussed also the risk which include but not limited to bleeding, infection, injury to nearby organ including the liver, the lung, bowel. Discussed also risk from anesthesia. Discussed with him he is at high risk of complication given his cardiac history. Of note patient was evaluated by Dr. Valente and was deemed cleared for surgery. He understood all risks and agree to proceed with right-sided PCNL Consent for Procedure: I have explained the operation/procedure to the patient, including the risks, benefits, side effects, alternative therapies (including not receiving the proposed treatment or service), the likelihood of the patient achieving his/her goals, and potential recuperation problems for the procedure/sedation/analgesia, as well as any blood products, if indicated. I also explained to the patient the risks, benefits and side effects of the alternatives, as well as the risks related to not receiving the proposed procedure, care, treatment, or services. Past Medical History Past Medical History: Atrial Fibrillation, Heart Failure, Hypertension Additional Past Medical History / Comment(s): hx kidney stone, hx covid 2020., states sob with walking 10 ft., pain right shoulder. History of Any Multi-Drug Resistant Organisms: None Reported Past Surgical History: No Surgical Hx Reported, Cardiac Ablation Additional Past Surgical History / Comment(s): lithotripsy Past Anesthesia/Blood Transfusion Reactions: No Reported Reaction Past Psychological History: No Psychological Hx Reported Additional Psychological History / Comment(s): claustrophobia Smoking Status: Former smoker Past Alcohol Use History: None Reported Additional Past Alcohol Use History / Comment(s): smoked for 5 years. Past Drug Use History: None Reported - Past Family History Father History Unknown: Yes Mother Family Medical History: No Reported History Medications and Allergies Home Medications Medication Instructions Recorded Confirmed Type Apixaban [Eliquis] 5 mg PO BID #60 tab 04/21/21 06/23/22 Rx oxyCODONE HCL/ACETAMINOPHEN 1 tab PO BID PRN 04/21/21 06/23/22 History [Percocet 10-325 mg] Furosemide [Lasix] 40 mg PO DAILY #30 tablet 04/22/21 06/23/22 Rx Metoprolol Succinate (ER) [Toprol 50 mg PO DAILY 04/11/22 06/23/22 History XL] Losartan [Cozaar] 25 mg PO DAILY 06/23/22 06/23/22 History Allergies Allergy/AdvReac Type Severity Reaction Status Date / Time aspirin Allergy blood in Verified 06/23/22 08:25 urine Surgical - Exam - General no distress, moderate pain - Eyes normal ocular movement, no pale - ENT normal nares, normal mucosa - Respiratory normal expansion, normal respiratory effort Assessment and Plan Assessment: OR for right-sided PCNL
[2022-06-26] MEDS ORDERED: ACETAMINOPHEN TAB 325 MG TAB PO PRN (09:42)
[2022-06-26] MEDS ORDERED: MAG HYDROX/AL HYDROX/SIMETH 30 ML CUP PO PRN (09:42)
[2022-06-26] MEDS ORDERED: ONDANSETRON 4 MG/2 ML VIAL IVP PRN (09:42)
[2022-06-26] MEDS ORDERED: HYDROmorphone 1 MG/ML 1 ML SYRINGE IVP PRN (09:44)
[2022-06-26] MEDS ORDERED: SUCCINYLCHOLINE CHLORIDE 200 MG/10 ML VIAL IV ONE (10:09)
[2022-06-26] MEDS ORDERED: HYDROmorphone (PF) 1 MG/ML ONE (10:09)
[2022-06-26] MEDS ORDERED: MIDAZOLAM 2 MG/2 ML VIAL ONE (10:09)
[2022-06-26] MEDS ORDERED: fentaNYL (PF) 50 MCG/ML 2 ML AMP ONE (10:09)
[2022-06-26] MEDS ORDERED: ePHEDrine 50 MG/ML 1 ML VIAL ONE (10:09)
[2022-06-26] MEDS ORDERED: PROPOFOL 10 MG/ML 20 ML VIAL IV ONE (10:09)
[2022-06-26] MEDS ORDERED: ROCURONIUM 10 MG/ML (5 ML VIAL) IV ONE (10:09)
[2022-06-26] MEDS ORDERED: LIDOCAINE 2% INJ 20 MG/ML (2 ML VIAL) ONE (10:09)
[2022-06-26] MEDS ORDERED: IOPAMIDOL-370 50ML BTL MISCELLANE ONE ×2 (10:45→11:40)
[2022-06-26] MEDS ORDERED: LACTATED RINGERS 1,000 ML IV ONE (12:13)
--- NOTE | 2022-06-26 13:13 | FL ---
Intraoperative/procedural fluoroscopic services were provided for right renal stone. Total fluoroscop y time is 3 minutes 22 seconds with a total of 2 submitted images to PACS. Please see the operative n ote for further details.
[2022-06-26] MEDS: HYDROmorphone 0.5 MG/0.5 ML SYRINGE IVP PRN ×3 (13:56→14:56)
[2022-06-26] MEDS: DEXTROSE 5%-0.45% NACL 1,000 ML IV SCH ×2 (16:23→20:56)
[2022-06-26] MEDS: HEPARIN SODIUM,PORCINE/PF 5,000 UNIT/0.5 ML SYRINGE SQ SCH ×2 (16:51→23:47)
[2022-06-26] MEDS: oxyCODONE-APAP 10-325MG 1 EACH TAB PO PRN (21:02)
[2022-06-27] MEDS: DEXTROSE 5%-0.45% NACL 1,000 ML IV SCH (05:18)
[2022-06-27 07:40] VITALS: RESP 16
[2022-06-27] MEDS: HEPARIN SODIUM,PORCINE/PF 5,000 UNIT/0.5 ML SYRINGE SQ SCH (08:08)
[2022-06-27] MEDS ORDERED: FUROSEMIDE 40 MG TAB PO SCH (09:00)
[2022-06-27] MEDS ORDERED: METOPROLOL SUCCINATE (ER) 25 MG TAB.ER.24H PO SCH (09:00)
[2022-06-27] MEDS ORDERED: LOSARTAN 25 MG TAB PO SCH (09:00)
[2022-06-27] MEDS: oxyCODONE-APAP 10-325MG 1 EACH TAB PO PRN (09:28)
[2022-06-27 10:59] LABS: African American GFR (CKD) 63.6 (60.0-200.0); Anion Gap 9.4 mmol/L (10.00-18.00); BUN/Creat Ratio 16.69 Ratio (12.00-20.00); Blood Urea Nitrogen 21.7 mg/dL (9.0-27.0); Calcium 8.4 mg/dL (8.7-10.3); Carbon Dioxide 26.6 mmol/L (20.0-27.5); Non-African American GFR(CKD) 54.9 (60.0-200.0)
[2022-06-27 11:10] VITALS: BP 117/70; PULSE 79; TEMP 98.5
--- NOTE | 2022-06-27 19:04 | P.OP ---
Date of Procedure: 06/26/22 Preoperative Diagnosis: renal stone Postoperative Diagnosis: same Procedure(s) Performed: cystoscopy, right ureteral catheterization, percutaneous nephrolithotomy ( >2cm), nephrostomy tube placement Implants: none Anesthesia: GETA Estimated Blood Loss (ml): 100 Pathology: other (right renal stone) Condition: stable Disposition: PACU Indications for Procedure: This is a 71-year-old male with history of a 3 cm right-sided renal pelvis stone. He is symptomatic from the stone, stone is also obstructive causing hydronephrosis. Discussed given the size of the stone the option of right-sided percutaneous nephrolithotomy. Risk and benefit of the procedure was discussed in detail. Discussed also the risk which include but not limited to bleeding, infection, injury to nearby organ including the liver, the lung, bowel. Discussed also risk from anesthesia. Discussed with him he is at high risk of complication given his cardiac history. Of note patient was evaluated by Dr. Valente and was deemed cleared for surgery. He understood all risks and agree to proceed with right-sided PCNL Operative Findings: large right-sided renal pelvis stone, multiple small stones within the lower pole Description of Procedure: patient brought to the operating room, general anesthesia was induced. Next on the stretcher he was placed in a frog leg position. A cystoscopy fitted with 21-Amharic sheath was inserted per urethra, brief cystoscopy was performed which showed no abnormality within the bladder. Of note it was difficult to evaluate the dome of the bladder given the patient's position. At this time the right ureteral orfice was identified and intubated with a sensor wire. Next the scope was removed with the wire in place. Next a 8-Amharic balloon occluding catheter was passed over the wire and into the proximal ureter. Next a Cristina catheter was placed and the ureteral balloon dilator was secured to the Cristina. At this time patient was placed in prone position. All pressure points were padded. His right flank was prepped and draped in sterile fashion. Next access was obtained by Dr. Gonzalez into the kidney. Once 2 wires were advanced from the access down the ureter. Next I advanced a 30-Amharic balloon dilator, and the tract was dilated under fluoroscopy. Next the 30 Fr sheath was passed over the balloon dilator. Next the rigid nephroscope was inserted through the sheath. A large stone was encountered in the renal pelvis. Using this ultrasound lithotripter stone was fragmented, fragments were removed and sent for analysis. Additional stones were encountered in the midpole and the lower pole which were also grasped using the grasper and sent for analysis. Repeat nephroscopy showed no additional stones, and on fluoroscopy no additional stones were visualized. At this time a flexible cystoscope was inserted and a complete nephroscopy was performed which showed no additional stones within the kidney. Antegrade nephrostogram was performed which showed no additional filling defect or evidence of contrast extravasation. Next a 10-Amharic nephrostomy tube was passed over the wire and into the renal pelvis. Antegrade nephrostogram was performed through the nephrostomy tube to confirm location. Next the access sheath was removed. The subcutaneous tissue was closed using 3-0 Vicryl, the skin was closed using 2-0 silk and nephrostomy tube was secured to the skin using the silks sutures. Sterile dressing was applied at the site. At this time the patient was awakened from anesthesia and taken to recovery in stable condition
== END 2022-06-27 14:45 | disposition home or self-care (01) ==
LOC: OR 07:46 → 5NMEDONC 12:49 → OR 06-27 14:45
PROVIDERS: ATTEND Urology
DX: N20.0 Calculus of kidney (principal); I48.91 Unspecified atrial fibrillation; I11.0 Hypertensive heart disease with heart failure; I50.9 Heart failure, unspecified; M25.511 Pain in right shoulder; Z98.890 Other specified postprocedural states; F40.240 Claustrophobia; Z87.891 Personal history of nicotine dependence; Z84.89 Family history of other specified conditions; Z79.899 Other long term (current) drug therapy; Z86.16 Personal history of COVID-19; Z88.6 Allergy status to analgesic agent
CPT/HCPCS: 50432; 52353; 86900; 86901; 80048; 84132; 86850; 82365; 74018; C1769 ×7; C2628; C1729 ×2; C1894 ×2; C1758; J1100; J0690; J2405; J1170 ×2; Q9967; J1644 ×2

== ENCOUNTER → 2022-07-24 | Outpatient (CLI) | payer MEDICARE ==
--- NOTE | 2022-07-24 13:37 | US ---
EXAMINATION TYPE: US kidneys/renal and bladder DATE OF EXAM: 07/24/2022 COMPARISON: CT 06/09/2022 CLINICAL HISTORY: N20.0 Calculas of Kidney Right. Right renal stone removed 06/26/2022 EXAM MEASUREMENTS: Right Kidney: 11.1 x 5.1 x 5.0 cm Left Kidney: 10.3 x 5.5 x 5.0 cm Right Kidney: Echogenic shadowing foci lower pole 0.39 x 0.39 x 0.46cm. Mild hydronephrosis visualize d. Left Kidney: Hypoechoic exophytic mass lower pole, possibly cystic 0.99 x 0.82 x 0.76cm . No interna l color flow identified. No shadowing calculi or hydronephrosis. Bladder: wnl Bilateral Jets seen: Yes IMPRESSION: 1. Mild right hydronephrosis. 2. Nonobstructive right renal calculus. 3. 1.0 cm hypoechoic exophytic left lower pole lesion corresponding to prior CT. No internal vascula rity identified. This may represent a cyst. Short-term follow-up ultrasound or multiphasic CT/MRI w c ontrast renal mass protocol is recommended.
== END | disposition home or self-care (01) ==
LOC: RADUSWWP 12:31
PROVIDERS: ATTEND Urology
DX: N20.0 Calculus of kidney (principal)
CPT/HCPCS: 76770

== ENCOUNTER → 2022-08-09 | Outpatient (CLI) | payer MEDICARE ==
[2022-08-09 16:04] LABS: HGB 10.5 g/dL (13.0-17.0); MCH 25.1 pg (27.0-32.0); MCV 83.5 fL (80.0-97.0); Mean Platelet Volume 11.9 fL (9.5-12.2); NRBC Per 100 WBC 0 /100 WBCS (0.0-0.0); Platelet Count 209 X 10*3/uL (140-440); RBC 4.19 X 10*6/uL (4.40-5.60); RDW 19.1 % (11.5-14.5); WBC 8.96 X 10*3/uL (4.50-10.00)
[2022-08-09 16:12] LABS: African American GFR (CKD) 53.5 (60.0-200.0); Anion Gap 9.2 mmol/L (10.00-18.00); BUN/Creat Ratio 15.53 Ratio (12.00-20.00); Blood Urea Nitrogen 23.3 mg/dL (9.0-27.0); Calcium 9.1 mg/dL (8.7-10.3); Carbon Dioxide 29.8 mmol/L (20.0-27.5); Non-African American GFR(CKD) 46.2 (60.0-200.0); Potassium 4.7 mmol/L (3.5-5.5)
== END | disposition home or self-care (01) ==
LOC: LABWHC1 11:10
PROVIDERS: ATTEND Nurse Practitioner Family
DX: I35.2 Nonrheumatic aortic (valve) stenosis with insufficiency (principal)
CPT/HCPCS: 36415; 80048; 85027

== ENCOUNTER 2022-08-25 05:54 | Day surgery (SDC) | payer MEDICARE ==
[2022-08-22 09:50] VITALS: BMI 24.8
[~2022-08-25 05:54] MED LIST changes: +ALPRAZolam 0.25 MG TAB PO PRN; +ALPRAZolam 0.5 MG TAB PO PRN; +ATORVASTATIN 80 MG TAB PO STA; -DEXAMETHASONE SOD PHOSPHATE 4 MG/ML 1 ML VIAL IV ONE; +HEPARIN SODIUM,PORCINE 10,000 UNIT in SODIUM CHLORIDE 0.9% 1,000 ML IRRIGATION PRN; +HEPARIN SODIUM,PORCINE 2,500 UNIT in SODIUM CHLORIDE 0.9% 250 ML IRRIGATION PRN; -LACTATED RINGERS 1,000 ML IV SCH; +NITROGLYCERIN SL TABS 0.4 MG TAB SUBLINGUAL PRN; -ONDANSETRON 4 MG/2 ML VIAL IVP ONE; +SODIUM CHLORIDE 0.9% 1,000 ML in EMPTY BAG 1 BAG IV ONE
[2022-08-25] MEDS ORDERED: ASPIRIN 81 MG ONE (06:14)
[2022-08-25] MEDS ORDERED: SODIUM CHLORIDE 0.9% 1,000 ML IV ONE (06:17)
[2022-08-25 06:56] LABS: Calcium 8.5 mg/dL (8.4-10.2); Potassium 4.5 mmol/L (3.5-5.1)
[2022-08-25] MEDS ORDERED: ASPIRIN 325 MG TAB PO ONE (07:00)
[2022-08-25] MEDS ORDERED: fentaNYL (PF) 50 MCG/ML 2 ML AMP ONE (07:14)
[2022-08-25] MEDS ORDERED: VERAPAMIL 2.5 MG/ML 2 ML AMP ONE (07:20)
[2022-08-25] MEDS ORDERED: HEPARIN SODIUM 1,000 UN/ML (10ML VL) ONE (07:21)
[2022-08-25] MEDS ORDERED: BENZOCAINE SPRAY 1 CAN TOPICAL ONE ×2 (07:26→07:31)
[2022-08-25] MEDS ORDERED: MIDAZOLAM 2 MG/2 ML VIAL IV ONE (07:32)
[2022-08-25] MEDS ORDERED: fentaNYL (PF) 50 MCG/ML 2 ML AMP IV ONE (07:32)
[2022-08-25] MEDS ORDERED: IV FLUID CONTINUATION 1,000 ML IV ONE (07:38)
[2022-08-25] MEDS: LIDOCAINE 1% INJ 10MG/ML (30 ML VIAL-PF) SQ ONE ×2 (07:57→08:10)
--- NOTE | 2022-08-25 08:36 | CC ---
CARDIAC CATHETERIZATION REPORT INDICATION: Aortic stenosis and regurgitation. PROCEDURE NOTE: After obtaining informed consent, transesophageal echocardiogram is performed in left lateral position using an Omniplane probe. Local and IV sedation were obtained with Xylocaine spray, 2 mg of Versed and 25 mcg of fentanyl. The patient tolerated the procedure well without any obvious immediate complications. 2D color Doppler and spectral analysis had been performed. FINDINGS: 1. Aortic valve is a 3 leaflet valve, appears heavily calcified with moderate to severe restriction in leaflet mobility. There is a calcific density attached to the noncoronary. There is severe aortic regurgitation noted. There is moderate aortic stenosis with a calculated valve area of around 1 cm2. 2. Mitral valve is anatomically normal. There is mild mitral regurgitation noted. There is mild tricuspid regurgitation noted. 3. Left ventricle has normal size and systolic function. 4. Left atrium appears enlarged, right atrium right ventricle seen within normal limits. Left atrial appendage is free of thrombus. In septum, there is no evidence of [id number] shunt by color-flow Doppler or [id number] shunt by agitated saline contrast study. CONCLUSIONS: 1. Severe aortic regurgitation with moderate aortic stenosis involving a 3 leaflet aortic valve that appears heavily calcified with moderate to severe restriction in leaflet mobility. 2. Normal left ventricular systolic function. 3. Aortic root measures within normal limits. MMODL / IJN: [id number] /
[2022-08-25] MEDS: HEPARIN SODIUM 1,000 UN/ML (10ML VL) IVP ONE ×2 (08:41→09:09)
[2022-08-25] MEDS ORDERED: CLOPIDOGREL 75 MG TAB ONE (08:43)
[2022-08-25] MEDS ORDERED: CLOPIDOGREL 75 MG TAB PO ONE (08:44)
[2022-08-25] MEDS ORDERED: NITROGLYCERIN 1000MCG/10ML SYRINGE INTRACORON ONE (08:52)
--- NOTE | 2022-08-25 08:59 | CC ---
CARDIAC CATHETERIZATION REPORT INDICATION: Exertional shortness of breath in a patient with aortic stenosis and regurgitation. PROCEDURE NOTE: After obtaining informed consent, left heart catheterization and coronary angiogram were performed via the right femoral artery using a size 3.5 right and left Gladis catheters. The patient received moderate conscious sedation. Total sedation time was 34 minutes. I initially attempted right radial artery access, but was unsuccessful. Hence I proceeded with right femoral access and completed the procedure uneventfully. HEMODYNAMICS: Central aortic pressure is 130/70 mm. LEFT VENTRICULOGRAM: Not performed. ANGIOGRAPHIC DATA: Right coronary artery: Right coronary artery is a large dominant vessel that shows mild to moderate diffuse nonobstructive disease. Left main coronary artery appears calcified, but is free of significant stenosis. Divides into left anterior descending coronary artery and circumflex coronary artery. LAD shows a mild nonobstructive coronary artery disease. Circumflex coronary artery which is a large caliber vessel shows a focal 99% stenosis. There are irregular ectatic changes and there is a long segment of narrowing. CONCLUSIONS: Critical stenosis involving circumflex coronary artery. PLAN: I am going to review the angiographic data with Dr. Valerio, the on-call front end java developer, and proceed with angioplasty with stent placement of circumflex coronary artery. The patient's symptoms could very well be related to the obstructive CAD and if the symptoms resolved, I am going to hold off aortic valve replacement at this time. But if the symptoms persist, we will replace the aortic valve. MMZENIAL / IJN: [id number] /
[2022-08-25] MEDS ORDERED: IOPAMIDOL-370 125ML BTL INJ ONE (09:05)
[2022-08-25] MEDS ORDERED: oxyCODONE-APAP 10-325MG 1 EACH TAB PO PRN (09:13)
[2022-08-25] MEDS ORDERED: RX INFO: IV CONTRAST WAS GIVEN 1 EACH MISC MISCELLANE PRN (09:14)
[2022-08-25] MEDS ORDERED: ATROPINE SULFATE 0.1 MG/ML 10ML SYRINGE IV PRN (09:14)
[2022-08-25] MEDS ORDERED: ZOLPIDEM 5 MG TAB PO PRN (09:14)
[2022-08-25] MEDS ORDERED: MAG HYDROX/AL HYDROX/SIMETH 30 ML CUP PO PRN (09:14)
[2022-08-25] MEDS ORDERED: SODIUM CHLORIDE 0.9% 1,000 ML in EMPTY BAG 1 BAG IV SCH (09:15)
[2022-08-25] MEDS ORDERED: ALBUTEROL NEBULIZED 2.5 MG/3 ML INHALATION PRN (09:21)
[2022-08-25] MEDS: APIXABAN 5 MG TAB PO SCH (19:59)
[2022-08-25] MEDS ORDERED: ATORVASTATIN 40 MG TAB PO SCH (21:00)
--- NOTE | 2022-08-25 21:21 | P.PRCINT ---
Percutaneous Coronary Int. - Percutaneous Coronary Intervention Percutaneous Coronary Intervention: PROCEDURES PERFORMED: Left coronary angiography, PCI circumflex with 3.0 x 33mm Xience LINK INDICATION: FOWLER, aortic stenosis and aortic insufficiency PROCEDURE: After the risks, benefits and alternatives of the above mentioned procedure explained in detail with the patient, informed consent was obtained. Patient had already been taken to the catheterization lab and prepped and draped in usual fashion. A 6-Amharic sheath had already been placed in the right femoral artery. The decision was made to perform PCI of the circumflex. A 6Fr CLS 4.0 guide was used to engage the left main. A 0.014 BMW wire was placed in the distal circumflex. A 2.5 x 20mm balloon was used to predilated the lesion. Next a 3.0 x 33mm Xience LINK was deployed in the mid to distal circumflex covering all 3 lesions. The wire was pulled and final angiograms were performed. Pre intervention there was tandem 75%, 95%, 85% stenosis with HAILEY 3 flow and post intervention there was <10% stenosis and HAILEY 3 flow. A right femoral angiogram showed adequate anatomy for closure. A 6Fr Angioseal was placed. The patient tolerated the procedure well. Patient was transported back to the post catheterization holding area in stable condition. Conscious Sedation: Patient was monitored under the direct supervision of vision of myself for conscious sedation using Versed and fentanyl for a total duration of 32 minutes HEMODYNAMICS: Ao: 114/72 FINAL IMPRESSION: 1. CAD as described above with 95% circumflex stenosis, s/p PCI circumflex with 3.0 x 33mm Xience LINK PLAN: 1. Aggressive risk factor modification per most recent ACC/AHA guidelines. 2. Continue Plavix and Eliquis for 12 months.
[2022-08-26 06:40] LABS: Anisocytosis Slight; HCT 34.2 % (39.0-53.0); HGB 10.7 gm/dL (13.0-17.5); Hypochromasia Marked; MCH 26.6 pg (25.0-35.0); MCHC 31.3 g/dL (31.0-37.0); MCV 85.1 fL (80.0-100.0); Mean Platelet Volume 9.3; Platelet Count 164 k/uL (150-450); RBC 4.02 m/uL (4.30-5.90); RDW 17.4 % (11.5-15.5); WBC 8.6 k/uL (3.8-10.6)
[2022-08-26 06:52] LABS: African American GFR (CKD) 68 (>60 ml/min/1.73 sqM); Anion Gap 2 mmol/L; Blood Urea Nitrogen 21 mg/dL (9-20); Calcium 8.5 mg/dL (8.4-10.2); Carbon Dioxide 34 mmol/L (22-30); Chloride 104 mmol/L (98-107); Glucose 101 mg/dL (74-99); Non-African American GFR(CKD) 59 (>60 ml/min/1.73 sqM); Potassium 4.8 mmol/L (3.5-5.1); Sodium 140 mmol/L (137-145)
[2022-08-26 06:56] LABS: Band Neutrophils % 2 %; Eosinophils # (M) 0.26 k/uL (0-0.7); Lymphocytes # (M) 0.69 k/uL (1.0-4.8); Neutrophils % (M) 80 %; Nucleated Red Blood Cells 0 /100 WBC (0-0); Total Cells Counted 100
[2022-08-26 06:57] LABS: Toxic Granulation Present
[2022-08-26] MEDS ORDERED: METOPROLOL SUCCINATE (ER) 50 MG TAB.ER.24H PO SCH (09:00)
[2022-08-26] MEDS ORDERED: FUROSEMIDE 40 MG TAB PO SCH (09:00)
[2022-08-26] MEDS ORDERED: LOSARTAN 25 MG TAB PO SCH (09:00)
[2022-08-26] MEDS ORDERED: ASPIRIN 81 MG PO SCH (09:00)
[2022-08-26 09:10] VITALS: BP 114/70; PULSE 83; RESP 16; TEMP 98.1
[2022-08-26] MEDS: APIXABAN 5 MG TAB PO SCH (09:17)
--- NOTE | 2022-08-26 12:06 | P.DS ---
Providers Expected date of discharge: 08/26/22 Attending physician: Michael Mckeon Consults: 08/25/22 09:14 Consult Physician Routine Consulting Provider: [facility] Consult Reason/Comments: Post Interventional patient Do you want consulting provider notified?: Already Contacted Primary care physician: Jah Hammond [facility] Course: This is a 71-year-old male patient with past medical history of atrial fibrillation, moderate to severe aortic stenosis with moderate aortic regurgitation and hypertension. Patient follows with Dr. Vaelnte. He was last seen in the office on 08/09/2022 with complaints of shortness of breath with exertional dyspnea. Patient was then scheduled for CHRIS and cardiac catheterization. Patient was brought into the hospital and is now status post cardiac cath eterization which revealed critical stenosis involving the circumflex coronary artery. Patient subsequently underwent stent placement of the circumflex coronary artery by Dr. Valerio. CHRIS had revealed found severe aortic regurgitation and moderate aortic stenosis. Patient has had nose post procedure complications and will be discharged today in stable condition. Atorvastatin and Plavix have been added to his medication regime. Patient Condition at Discharge: Good Plan - Discharge Summary Discharge Rx Participant: Yes New Discharge Prescriptions: New Atorvastatin [Lipitor] 40 mg PO HS #30 tab Clopidogrel [Plavix] 75 mg PO DAILY #30 tablet Continue Furosemide [Lasix] 40 mg PO DAILY #30 tablet Metoprolol Succinate (ER) [Toprol XL] 50 mg PO DAILY Losartan [Cozaar] 25 mg PO DAILY Albuterol Inhaler [Ventolin Hfa Inhaler] 1 puff INHALATION DIRECTED PRN PRN Reason: Shortness Of Breath oxyCODONE HCL/ACETAMINOPHEN [Percocet 10-325 mg] 1 tab PO Q8HR PRN PRN Reason: Pain Apixaban [Eliquis] 5 mg PO BID #60 tab Discharge Medication List Apixaban [Eliquis] 5 mg PO BID #60 tab 04/21/21 [Rx] oxyCODONE HCL/ACETAMINOPHEN [Percocet 10-325 mg] 1 tab PO Q8HR PRN 04/21/21 [History] Furosemide [Lasix] 40 mg PO DAILY #30 tablet 04/22/21 [Rx] Metoprolol Succinate (ER) [Toprol XL] 50 mg PO DAILY 04/11/22 [History] Losartan [Cozaar] 25 mg PO DAILY 06/23/22 [History] Albuterol Inhaler [Ventolin Hfa Inhaler] 1 puff INHALATION DIRECTED PRN 08/22/22 [History] Atorvastatin [Lipitor] 40 mg PO HS #30 tab 08/26/22 [Rx] Clopidogrel [Plavix] 75 mg PO DAILY #30 tablet 08/26/22 [Rx] Follow up Appointment(s)/Referral(s): Michael Mckeon MD [STAFF PHYSICIAN] - 08/31/22 8:45 am Patient Instructions/Handouts: *[facility] - After Heart Catheterization - 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
== END 2022-08-26 11:19 | disposition home or self-care (01) ==
LOC: CATHCVL 05:54 → 6NMEDSUR 11:22 → CATHCVL 08-26 11:19
PROVIDERS: ATTEND Internal Medicine Cardiovascular Disease
DX: I35.2 Nonrheumatic aortic (valve) stenosis with insufficiency (principal); I10 Essential (primary) hypertension; I48.91 Unspecified atrial fibrillation; Z79.01 Long term (current) use of anticoagulants
CPT/HCPCS: 94760; 93312; 93320; 93325; 93458; 80048 ×2; 85025; C9600; C1769 ×3; C1760; C1887; C1894 ×2; C1725; C1874; J2250; J2001; J3010; J1644; Q9967

== ENCOUNTER → 2023-09-04 | Outpatient (CLI) | payer MEDICARE ==
--- NOTE | 2023-09-04 15:56 | XR ---
EXAMINATION TYPE: XR chest 2V DATE OF EXAM: 09/04/2023 COMPARISON: 09/05/2021 HISTORY: 72-year-old male [id number], cough and congestion for 3 weeks TECHNIQUE: Frontal and lateral views FINDINGS: The cardiomediastinal silhouette, aorta, and pulmonary vasculature are within normal limits. Extensiv e right basilar airspace disease. IMPRESSION: Extensive right basilar consolidation suggests pneumonia. Follow-up after treatment to ensure clearan ce.
[2023-09-04 17:07] LABS: African American GFR (CKD) 63 (>60 ml/min/1.73 sqM); Anion Gap 8 mmol/L; Blood Urea Nitrogen 39 mg/dL (9-20); Carbon Dioxide 31 mmol/L (22-30); Chloride 98 mmol/L (98-107); Glucose 104 mg/dL (74-99); Non-African American GFR(CKD) 55 (>60 ml/min/1.73 sqM); Potassium 4.9 mmol/L (3.5-5.1); Sodium 137 mmol/L (137-145)
[2023-09-04 17:11] LABS: NT-Pro-B-Type Natriuretic Pept 3310 pg/mL
[2023-09-05 01:44] LABS: HCT 31.9 % (39.6-50.0); HGB 9.8 g/dL (13.0-17.0); MCH 28.1 pg (27.0-32.0); MCHC 30.7 g/dL (32.0-37.0); MCV 91.4 FL (80.0-97.0); Mean Platelet Volume 11.2 FL (9.5-12.2); NRBC Per 100 WBC 0 X 10*3/uL (0.00-0.01); Platelet Count 289 X 10*3/uL (140-440); RBC 3.49 X 10*6/uL (4.40-5.60); RDW 14.9 % (11.5-14.5); WBC 11.87 X 10*3/uL (4.50-10.00)
== END | disposition home or self-care (01) ==
LOC: LABWHC1 14:08
PROVIDERS: ATTEND Internal Medicine Cardiovascular Disease
DX: I50.32 Chronic diastolic (congestive) heart failure (principal); R05.9 Cough, unspecified; R09.89 Other specified symptoms and signs involving the circulatory and respiratory systems; R09.81 Nasal congestion
CPT/HCPCS: 36415; 71046; 80048; 83880; 85027

== ENCOUNTER → 2023-09-14 | Outpatient (CLI) | payer MEDICARE ==
--- NOTE | 2023-09-14 10:53 | XR ---
EXAMINATION TYPE: XR chest 2V DATE OF EXAM: 09/14/2023 COMPARISON: 09/04/2023. HISTORY: Pneumonia. TECHNIQUE: Frontal and lateral views of the chest are obtained. IMPRESSION: Unchanged previously consolidative opacity within the right lung base with likely adjacent pleural ef fusion. An underlying mass cannot be excluded and a CT with contrast would BE recommended for further evaluation.
== END | disposition home or self-care (01) ==
LOC: RADXRMAIN 10:27
PROVIDERS: ATTEND Internal Medicine Cardiovascular Disease
DX: J18.9 Pneumonia, unspecified organism (principal); R91.8 Other nonspecific abnormal finding of lung field
CPT/HCPCS: 71046